=== PATIENT | male | born 1965 | race Caucasian/White ===

== ENCOUNTER → 2016-10-25 | Outpatient (CLI) | payer BC ==
[~2016-10-25] MED LIST: AUGMENTIN250 MG PO; BACTRIM DS1 TAB PO; CEFAZOLIN 2 GM IV; CEFAZOLIN2 GM/50 M1 IV; DOXYCYCLINE100 MG PO; FLORASTOR250 MG PO; KEFLEX500 MG; LOVENOX 3030 MG/0.3 SUB-Q; LOVENOX 4040 MG/0.4 SUB-Q; MIRALAX17 GM PO; NEURONTIN400 MG PO; NORCO 5-325 TA1 EACH PO; NORVASC10 MG PO; OXYCONTIN EXTEN10 MG PO; OXYGEN M-15 INH; PERCOCET 5-3251 EACH PO; TYLENOL325 MG PO; VALIUM5 MG PO; VIBRAMYCIN100 MG PO; ZOLOFT50 MG PO
== END | disposition disaster alternative care site (69) ==
LOC: GRAD 10:22
DX: S82.301D Unspecified fracture of lower end of right tibia, subsequent encounter for closed fracture with routine healing (principal); S82.831D Other fracture of upper and lower end of right fibula, subsequent encounter for closed fracture with routine healing; X58.XXXD Exposure to other specified factors, subsequent encounter

== ENCOUNTER → 2016-10-25 | Outpatient (CLI) | payer BC | END | disposition disaster alternative care site (69) | LOC: GRAD 12:00 | DX: M25.561 Pain in right knee (principal); M79.674 Pain in right toe(s); M79.89 Other specified soft tissue disorders ==

== ENCOUNTER 2016-10-28 05:52 | Inpatient (IN) | payer BC ==
[~2016-10-28] VITALS: Ht 162.6 cm; Wt 96.0 kg
--- NOTE | ~2016-10-28 | ENPV ---
Vascular Lower Extremities DVT Study Procedure Demographics Patient Name BRYAN MILLARD Date of Study 10/28/2016 Patient Number [id number] Gender Male Date of 1965 Age 50 Visit Number [id number] Height Accession Number [id number] Weight Room Number G3203 BSA BMI Referring Irene Miranda MD Interpreting Elias Bond MD Physician Physician Physician Ordering Physician Supervisor [facility] Provider Heather Brian [facility] Conclusions Summary Negative for DVT Procedure Type of Study: Veins:Lower Extremities DVT Study, Lower Extremity Right. Appropriate Use Criteria:9 Patient Status:Routine. Study Location:ER. Technical Quality:Good visualization. Velocities are measured in cm/s ; Diameters are measured in cm Right Lower Extremities DVT Study Measurements Right 2D and Doppler Measurements + + + + +------+------+ + !Location !Visualized!Compressibility!Thrombosis!Signal!Reflux!Reflux ! ! ! ! ! ! ! !(sec) ! + + + + +------+------+ + !GSV Thigh !Yes !Yes !None !Phasic!No ! ! + + + + +------+------+ + !Common !Yes !Yes !None !Phasic!No ! ! !Femoral ! ! ! ! ! ! ! + + + + +------+------+ + !Prox !Yes !Yes !None !Phasic!No ! ! !Femoral ! ! ! ! ! ! ! + + + + +------+------+ + !Mid Femoral!Yes !Yes !None !Phasic!No ! ! + + + + +------+------+ + !Dist !Yes !Yes !None !Phasic!No ! ! !Femoral ! ! ! ! ! ! ! + + + + +------+------+ + !Popliteal !Yes !Yes !None !Phasic!No ! ! + + + + +------+------+ + !Gastroc !Yes !Yes !None !Phasic!No ! ! + + + + +------+------+ + !PTV !Yes !Yes !None !Phasic!No ! ! + + + + +------+------+ + !Peroneal !Yes !Yes !None !Phasic!No ! ! + + + + +------+------+ + Left Lower Extremities DVT Study Measurements Left 2D and Doppler Measurements + + + + +------+------+ + !Location !Visualized!Compressibility!Thrombosis!Signal!Reflux!Reflux ! ! ! ! ! ! ! !(sec) ! + + + + +------+------+ + !Common !Yes !Yes !None ! ! ! ! !Femoral ! ! ! ! ! ! ! + + + + +------+------+ + Signature dtt: HARMAN BAKER dtd: 10/28/16 0631 Physician Self Edit
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
[~2016-10-28 05:52] MED LIST changes: -AUGMENTIN250 MG PO; -BACTRIM DS1 TAB PO; -CEFAZOLIN2 GM/50 M1 IV; -DOXYCYCLINE100 MG PO; -LOVENOX 3030 MG/0.3 SUB-Q; -TYLENOL325 MG PO
[2016-10-28 06:39] LABS: BASOPHIL % 0.2 %; EOSINOPHIL # 0.1 K/uL (0.0-0.5); EOSINOPHIL % 0.5 %; HEMATOCRIT 44.5 % (37.0-53.0); HEMOGLOBIN 15.5 g/dL (12.0-17.0); IMMATURE GRANULOCYTE % 0.3 %; LYMPHOCYTE # 1.9 K/uL (0.8-4.0); LYMPHOCYTE % 17.2 %; MCHC 34.8 gm/dL (32.0-36.5); MONOCYTE # 1.1 K/uL (0.0-1.0); MONOCYTE % 9.5 %; MPV 11.2 fl (9.4-12.4); NEUTROPHIL # (ANC) 8.1 K/uL (1.4-9.0); NEUTROPHIL % 72.3 %; NRBC % 0 /100WBC (0-0.00); RDW-CV 11.9 % (11.9-14.6); WBC 11.2 K/uL (4.0-11.0)
[2016-10-28 06:41] LABS: PLATELET COUNT 177 K/uL (150-450)
[2016-10-28 06:55] LABS: CHLORIDE 103 mMol/L (96-110); CO2 24 mMol/L (22-32); SODIUM 137 mMol/L (135-145)
[2016-10-28 06:56] LABS: ALBUMIN 3.6 gm/dL (3.5-5.0); ALK PHOS 83 IU/L (33-138); ALT 31 IU/L (12-78); BLOOD UREA NITROGEN 19 mg/dL (6-24); CALCIUM 8.5 mg/dL (8.5-10.5); ESTIMATED GFR (MDRD EQUATION) > 60; TOTAL PROTEIN 8.5 g/dL (6.0-8.4)
[2016-10-28 06:59] LABS: AST 24 IU/L (10-40); TOTAL BILIRUBIN 0.9 mg/dL (0.0-1.5)
[2016-10-28] MEDS ORDERED: TYLENOL325 MG PO (09:29)
--- NOTE | 2016-10-28 12:06 | NUR ---
Introduced self and care management services to patient and at bedside. Lives in [place]. Too soon to know what care needs will be but a urgent care will be following along to assist with dc planning for cellulitis RLE. Has been being followed as an outpt by [facility].
--- NOTE | 2016-10-28 17:34 | NUR ---
Significant Event:PT ADMITTED TODAY AT 0915 WITH RIGHT ANKLE CELLULITIS. HAD MRI OF RIGHT LEG TO R/O OSTEOMYELITIS. TEMP 99.0 ON ADMISSION. CHILLED AND WARM BLANKETS APPLIED AND THEN TEMP SPIKED TO 101.5AT 1445 DR. FELIZ NOTIFIED AND TYLENOL PO GIVEN. TEMP 99.4 AT 1530. C/O HEADACHE AND FEELING MISERABLE. IN ROOM. RIGHT ANKLE HAS REDDENED AREA MARKED AND 2+ EDEMA. HAS WOUND VAC ON RIGHT INNER ANKLE. WOUND CULTURES TAKEN YESTERDAY OUTPATIENT. HX HYPERTENSION. NO WEIGHT BEARING ON RIGHT FOOT. Follow up:
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
--- NOTE | 2016-10-29 04:13 | NUR ---
Significant Event: PATIENT IS ALERT AND ORIENTATED X4. BEDREST NON WEIGHT BEARING RIGHT LEG. WOUND VAC TO LOWER R LEG. REDNESS AREA OUTLINED ON R LEG. VS WNL. IV TO LEFT HAND. HE IS COMPLAINING OF HEADACHE IN FRONTAL AREA. TYLENOL GIVEN AT 0300. IS IN ROOM WITH HIM. Follow up:
--- NOTE | 2016-10-29 17:00 | NUR ---
Significant Event:PT. A/O AND UP TO BR AND SHOWER WITH . NO WEIGHT BEARING ON RIGHT FOOT. HAD 101.0 TEMP AT 1500 AND TYLENOL GIVEN. ANTIBIOTICS NARROWED DOWN TO JUST VANCO NOW AND CULTURES PENDING FOR TOMORROW. WOUND VAC ON RIGHT INNER ANKLE AND CHANGED M-W-F. NEEDS 2L PER NC AT NIGHT WHEN SLEEPING. EATING ONLY 10% OF MEALS BUT DENIES NAUSEA. IV LEFT WRIST. C/O HEADACHE AND DRINKING [place]W. Follow up:
[2016-10-30 03:30] LABS: HEMATOCRIT 44.1 % (37.0-53.0); HEMOGLOBIN 15.6 g/dL (12.0-17.0); MCH 31.2 pg (27.0-34.0); MCHC 35.4 gm/dL (32.0-36.5); MCV 88.2 fl (83.0-98.0); MPV 10.5 fl (9.4-12.4); PLATELET COUNT 200 K/uL (150-450); RDW-CV 11.9 % (11.9-14.6); WBC 6.6 K/uL (4.0-11.0)
[2016-10-30 03:57] LABS: BLOOD UREA NITROGEN 13 mg/dL (6-24); CALCIUM 8.6 mg/dL (8.5-10.5); CHLORIDE 104 mMol/L (96-110); CO2 25 mMol/L (22-32); ESTIMATED GFR (MDRD EQUATION) > 60; SODIUM 140 mMol/L (135-145)
--- NOTE | 2016-10-30 04:25 | NUR ---
Significant Event: ALERT AND ORIENTED X 4. BEDREST REPOSITIONS SELF. VS WNL ON RA. NEW IV TO R HAND TO BE KEPT AT TKO FOR VANCOMYCIN. WOUND VAC TO R LOWER LEG RUNNING AND INTACT REDNESS OUTLINED NO CHANGE. AFEBRILE THIS SHIFT. GOOD INTAKE FOR DINNER 100% OF SUB EATEN. NO COMPLAINTS OF PAIN OR DISCOMFORT THIS SHIFT. Follow up:
[2016-10-30 05:18] LABS: ABSOLUTE NEUTROPHIL CT (ANC) 4.5 K/uL (1.4-9.0); BANDED NEUTROPHIL # 0.1 K/uL (0.0-0.1); BANDED NEUTROPHILS % 2 %; LYMPHOCYTE # 1.6 K/uL (0.8-4.0); LYMPHOCYTE % 24 %; MONOCYTE # 0.5 K/uL (0.0-1.0); SEGMENTED NEUTROPHIL # 4.4 K/uL (1.4-9.0); SEGMENTED NEUTROPHIL % 66 %
[2016-10-30] MEDS ORDERED: BACTRIM DS1 TAB PO (14:12)
--- NOTE | 2016-10-30 15:46 | NUR ---
Discharge summary: Patient is alert and oriented. VSS. ON room air. IV to right forearm was removed without difficulty. Patient changed wound vac to home vac. Dressing to ankle was removed by Doctor. Instructions given to call and make appointments with infection disease and Dr Davis. Education was given to patient and on preventing dvt's, cellulitis, and the new medications he went home with. Prescripitions were given to take to pharmacy. Patient and verbalized understanding. Pt was wheeled per w/c to main [place] doors.
[2016-11-08] MEDS ORDERED: DOXYCYCLINE100 MG PO (11:14)
[2017-01-04] MEDS ORDERED: AUGMENTIN250 MG PO (13:26)
== END 2016-10-30 14:55 | disposition disaster alternative care site (69) | DRG 560 ==
LOC: GMED 05:52 → GMSU 08:24
PROVIDERS: Emergency Medicine; Nurse Practitioner Family; ADMIT Internal Medicine
DX: T84.59XA Infection and inflammatory reaction due to other internal joint prosthesis, initial encounter (principal); J96.11 Chronic respiratory failure with hypoxia; L03.115 Cellulitis of right lower limb; B95.61 Methicillin susceptible Staphylococcus aureus infection as the cause of diseases classified elsewhere; I10 Essential (primary) hypertension; S82.302H Unspecified fracture of lower end of left tibia, subsequent encounter for open fracture type I or II with delayed healing; V89.2XXD Person injured in unspecified motor-vehicle accident, traffic, subsequent encounter
CPT/HCPCS: A9577; J1335; J1650; J2270; J3370; J7030; J7040; J7050

== ENCOUNTER → 2016-11-08 | Outpatient (CLI) | payer BC ==
[~2016-11-08] MED LIST changes: +AUGMENTIN250 MG PO; +BACTRIM DS1 TAB PO; +CEFAZOLIN2 GM/50 M1 IV; +DOXYCYCLINE100 MG PO; +LOVENOX 3030 MG/0.3 SUB-Q; +TYLENOL325 MG PO
[2016-11-08 11:00] LABS: BASOPHIL % 0.4 %; EOSINOPHIL # 0.2 K/uL (0.0-0.5); EOSINOPHIL % 2.2 %; HEMATOCRIT 45.2 % (37.0-53.0); HEMOGLOBIN 15.9 g/dL (12.0-17.0); IMMATURE GRANULOCYTE % 0.6 %; LYMPHOCYTE # 1.8 K/uL (0.8-4.0); LYMPHOCYTE % 26.2 %; MCHC 35.2 gm/dL (32.0-36.5); MCV 88.1 fl (83.0-98.0); MONOCYTE # 0.6 K/uL (0.0-1.0); MONOCYTE % 8.5 %; MPV 10.1 fl (9.4-12.4); NEUTROPHIL # (ANC) 4.2 K/uL (1.4-9.0); NEUTROPHIL % 62.1 %; NRBC % 0 /100WBC (0-0.00); PLATELET COUNT 253 K/uL (150-450); RBC 5.13 M/uL (4.00-6.00); RDW-CV 11.8 % (11.9-14.6); WBC 6.8 K/uL (4.0-11.0)
== END | disposition disaster alternative care site (69) ==
LOC: GLAB 10:30
PROVIDERS: Orthopaedic Surgery
DX: B99.9 Unspecified infectious disease (principal)

== ENCOUNTER → 2016-11-15 | Outpatient (CLI) | payer BC ==
[2016-11-15 12:40] LABS: BASOPHIL # 0.1 K/uL (0.0-0.2); BASOPHIL % 0.6 %; EOSINOPHIL # 0.2 K/uL (0.0-0.5); EOSINOPHIL % 1.9 %; HEMATOCRIT 46.5 % (37.0-53.0); IMMATURE GRANULOCYTE % 0.3 %; LYMPHOCYTE # 2.3 K/uL (0.8-4.0); LYMPHOCYTE % 29.6 %; MCH 29.9 pg (27.0-34.0); MCHC 34.4 gm/dL (32.0-36.5); MCV 86.9 fl (83.0-98.0); MONOCYTE # 0.7 K/uL (0.0-1.0); MONOCYTE % 9.4 %; MPV 10.6 fl (9.4-12.4); NEUTROPHIL # (ANC) 4.5 K/uL (1.4-9.0); NEUTROPHIL % 58.2 %; NRBC % 0 /100WBC (0-0.00); PLATELET COUNT 238 K/uL (150-450); RBC 5.35 M/uL (4.00-6.00); RDW-CV 11.9 % (11.9-14.6); WBC 7.7 K/uL (4.0-11.0)
[2016-11-15 12:52] LABS: ESTIMATED GFR (MDRD EQUATION) > 60
== END | disposition disaster alternative care site (69) ==
LOC: GLAB 12:00
PROVIDERS: Orthopaedic Surgery
DX: T81.4XXA Infection following a procedure, initial encounter (principal); S91.001A Unspecified open wound, right ankle, initial encounter; M86.9 Osteomyelitis, unspecified

== ENCOUNTER → 2016-11-23 | Outpatient (CLI) | payer BC ==
--- NOTE | ~2016-11-23 | PUL ---
PATIENT'S NAME: BRYAN MILLARD [facility] AGE: 50 Y [address] ROOM: [place] [address] LOCATION: [facility] ADMIT DATE: 11/23/2016 Pulmonary DISCHARGE DATE: FAMILY PHYSICIAN: PERFECTO GROSS MD ATTENDING PHYSICIAN: Yareli [place] NAME OF PROCEDURE: Sleep Study PROCEDURE DATE: 11/23/16 TECH: MAGDIEL Malcolm TEST #: SD# [id number] TECHNICAL PARAMETERS: The patient was studied using International 10/20 measuring system. While the patient was studied, there was continuous monitoring of EEG (8 leads), EOG (2 leads), EKG (3 leads), submental EMG (3 leads), tibial (4 leads), respiratory inductive plethysmography (RIP) for thoracic and abdominal effort, oral and nasal airflow with a thermocouple and pressure transducer, and oximetry. The paint technician also performed visual and auditory observations noting things like body position, patient's status, breath sounds, artifact, snoring level and patient comments. Continuous sound was monitored using a 2-way speaker system and video monitoring was performed using an infrared camera. Review of the entire study was performed epoch by epoch utilizing a single epoch and multiple epoch capability sleep system. MEDICAL HISTORY: The patient is a 50-year-old gentleman with daytime sleepiness and snoring. SLEEP STAGE SUMMARY: The patient was studied for 451 minutes of which he slept 397 minutes. He fell asleep in 3 minutes and slept for 88% of the night. Sleep architecture revealed a decline in slow wave sleep. RESPIRATORY SUMMARY: Oxygen saturations ranged from 81-91% and were below 88% for 54 minutes. There were 9 apneas and 21 hypopneas for an apnea/hypopnea index normal at 4.5 events per hour. EKG SUMMARY: No significant dysrhythmias were noted. Average heart rate 72 beats per minute. LIMB MOVEMENT SUMMARY: No significant periodic limb movements were noted. SUMMARY: No evidence of significant obstructive sleep apnea. The patient however has mild non apneic hypoxemia. PATIENT'S NAME: BRYAN MILLARD [facility] AGE: 50 Y [address] ROOM: [place] [address] LOCATION: [facility] ADMIT DATE: 11/23/2016 Pulmonary DISCHARGE DATE: FAMILY PHYSICIAN: PERFECTO GROSS MD ATTENDING PHYSICIAN: Yareli [place] PLAN: Patient will receive results from the ordering provider. MD SHUBHAM [place]/ /[id number] dtt: 11/28/16 1743 , Malachi Jarquin. dtd: 11/26/16 1046
== END | disposition disaster alternative care site (69) ==
LOC: GSLP 09-14 21:00
DX: G47.30 Sleep apnea, unspecified (principal)

== ENCOUNTER → 2016-11-23 | Outpatient (CLI) | payer BC ==
[2016-11-23 10:56] LABS: BASOPHIL % 0.5 %; EOSINOPHIL # 0.2 K/uL (0.0-0.5); EOSINOPHIL % 3.2 %; HEMATOCRIT 44.2 % (37.0-53.0); HEMOGLOBIN 15.6 g/dL (12.0-17.0); IMMATURE GRANULOCYTE % 0.2 %; LYMPHOCYTE % 29.7 %; MCH 30.6 pg (27.0-34.0); MCHC 35.3 gm/dL (32.0-36.5); MCV 86.7 fl (83.0-98.0); MONOCYTE # 0.7 K/uL (0.0-1.0); MONOCYTE % 10.9 %; MPV 10.4 fl (9.4-12.4); NEUTROPHIL # (ANC) 3.7 K/uL (1.4-9.0); NEUTROPHIL % 55.5 %; NRBC % 0 /100WBC (0-0.00); PLATELET COUNT 196 K/uL (150-450); RDW-CV 11.9 % (11.9-14.6); WBC 6.6 K/uL (4.0-11.0)
[2016-11-23 16:12] LABS: ALBUMIN 3.6 gm/dL (3.5-5.0); ALK PHOS 107 IU/L (33-138); ALT 35 IU/L (12-78); AST 33 IU/L (10-40); BLOOD UREA NITROGEN 13 mg/dL (6-24); CALCIUM 8.7 mg/dL (8.5-10.5); CHLORIDE 104 mMol/L (96-110); CO2 27 mMol/L (22-32); ESTIMATED GFR (MDRD EQUATION) > 60; SODIUM 138 mMol/L (135-145); TOTAL PROTEIN 8.5 g/dL (6.0-8.4)
[2016-11-23 16:13] LABS: TOTAL BILIRUBIN 0.5 mg/dL (0.0-1.5)
== END | disposition disaster alternative care site (69) ==
LOC: GLAB 10:00
PROVIDERS: Orthopaedic Surgery; Student in an Organized Health Care Education/Training Program
DX: B99.9 Unspecified infectious disease (principal); S82.301D Unspecified fracture of lower end of right tibia, subsequent encounter for closed fracture with routine healing; S82.831D Other fracture of upper and lower end of right fibula, subsequent encounter for closed fracture with routine healing; X58.XXXD Exposure to other specified factors, subsequent encounter

== ENCOUNTER 2016-11-24 08:47 | Inpatient (IN) | payer BC ==
[~2016-11-24] VITALS: Ht 162.6 cm; Wt 91.3 kg
--- NOTE | ~2016-11-24 | CON ---
PATIENT'S NAME: PORTER CASTRO [facility] AGE: 50 Y [address] ROOM: [place] [address] LOCATION: [facility] ADMIT DATE: 11/24/2016 Consultation DISCHARGE DATE: FAMILY PHYSICIAN: PERFECTO GROSS MD ATTENDING PHYSICIAN: José Antonio Davis DATE OF CONSULTATION: 11/25/2016 REFERRING PHYSICIAN: José Antonio Davis MD REASON FOR CONSULTATION: Right ankle osteomyelitis. HISTORY OF PRESENT ILLNESS: I am asked by Dr. José Antonio Davis to see Porter Castro for further evaluation and recommendations regarding his right ankle infection. He has a long history of infection going back several months, and my group has followed him for most of that time. In brief, he sustained a right ankle fracture about 4 months ago and underwent open reduction and internal fixation. He had an open fracture at that time. He eventually developed a pin-tract infection with Staphylococcus coagulase negative, and ultimately developed a wound and infection at the site of the internal fixation. He was on a fairly prolonged course of oral antibiotics, initially Bactrim, then more recently doxycycline. However, he has failed to heal the wound and resolve the infection. Therefore, he was admitted yesterday and underwent debridement of medial and lateral wounds, and removal of the hardware. Prior cultures have grown Staphylococcus aureus, as well as Staphylococcus epidermidis, sensitive to oxacillin. PAST MEDICAL HISTORY: Hypertension. CURRENT MEDICATIONS: See the MAR for complete listing of medications. He was on doxycycline prior to admission, and currently, he is on cefazolin. SOCIAL HISTORY: No tobacco or alcohol abuse history to my knowledge. FAMILY HISTORY: Unremarkable and noncontributory to current illness. REVIEW OF SYSTEMS: A complete review of systems was carried out, and was remarkable only as noted. Please refer to the admission history and physical for complete PATIENT'S NAME: PORTER CASTRO [facility] AGE: 50 Y [address] ROOM: [address] [address] LOCATION: [facility] ADMIT DATE: 11/24/2016 Consultation DISCHARGE DATE: FAMILY PHYSICIAN: PERFECTO GROSS MD ATTENDING PHYSICIAN: José Antonio Davis details. OBJECTIVE: GENERAL: He appeared comfortable and is in no distress. VITAL SIGNS: Temperature is 37 degrees, blood pressure 113/71, pulse 76. HEENT - Posterior pharynx is clear, no adenopathy or thyromegaly. Cranial nerves intact. NECK: Supple. CHEST - Clear to auscultation. CARDIOVASCULAR - Regular rate and rhythm without S3, S4, and murmur. ABDOMEN - Soft, nontender, without hepatosplenomegaly or masses. EXTREMITIES - The right ankle and foot had an external fixator in place. There was a wound VAC present, as well. The foot and ankle were dressed and wrapped with an Freddie bandage. NEUROLOGIC - Strength and sensation grossly intact. PSYCHIATRIC - Behavior and affect are appropriate. LABORATORY DATA: Creatinine 1.0, liver function tests are normal. CRP is 2.17, white count 6.6, sedimentation rate 26. 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 Prior cultures have shown Staphylococcus aureus and Staphylococcus epidermidis, both sensitive to oxacillin. PLAN: We will continue with cefazolin 2 g every 8 hours for the next 6 weeks. He has done this at home before, and I think it would be a reasonable option, but another option for once a day administration would be ertapenem 1 g daily. He will follow up with my group in 2 weeks, and we will obtain weekly monitoring labs, as well as following his clinical progress. Thank you for this consultation. I am available to discuss the case by phone at [phone]. MD ALEJANDRA HASTINGS/modl PATIENT'S NAME: PORTER CASTRO [facility] AGE: 50 Y [address] ROOM: [address] [address] LOCATION: [facility] ADMIT DATE: 11/24/2016 Consultation DISCHARGE DATE: FAMILY PHYSICIAN: PERFECTO GROSS MD ATTENDING PHYSICIAN: José Antonio Davis /[id number] CC: MD Ki Mccormack MD d: 11/25/16 0848 t: 11/25/16 1117, CONSULTATION REPORT
--- NOTE | ~2016-11-24 | OR ---
[facility] 50 Y [address] ROOM: [address] [address] LOCATION: [facility] ADMIT DATE: 11/24/2016 OR/Procedure Report DISCHARGE DATE: FAMILY PHYSICIAN: PERFECTO GROSS MD ATTENDING PHYSICIAN: José Antonio Sparks SURGEON: José Antonio Sparks MD VEGETABLE VENDOR: DATE OF PROCEDURE: 11/24/2016 DIAGNOSIS: Right ankle pilon infected nonunion. PROCEDURE: 1. Irrigation and debridement, anterior right leg open fracture wound. 2. Irrigation and debridement, posterior tibia and fibula. 3. Removal of internal fixation from the tibia. 4. Removal of internal fixation from the fibula. 5. Deep cultures. 6. Application of tobramycin and vancomycin impregnated ceramic beads. 7. Placement of a deep Hemovac. 8. Placement of an external fixator. 9. Posterior splint. 10. Anterior wound VAC. ANESTHESIA: General. INDICATION: Mr. Castro is greater than 3 months status post open pilon. The anterior open wound has never totally healed. Cultures have been positive since initial debridements. Latest culture has grown Staph aureus sensitive to all except penicillin and erythromycin. There is also a Peptostreptococcus and Diphtheroids, has been on oral antibiotics. Despite the oral antibiotics, the swelling and erythema has become worse. The odor is worse. Clearly, the infection is not controlled and most likely delaying the healing. At this time, repeat irrigation and debridement, removal of fixation, and eventually refixation is indicated. Risks, benefits, and alternatives have been discussed. DESCRIPTION OF PROCEDURE: Mr. Castro was taken to the operating room. No preoperative antibiotics. General anesthetic via endotracheal tube. Turned under rolls in a prone position. Tourniquet high about the right thigh. Right leg was prepared with Betadine scrubbing followed by Betadine painting. With the knee flexed, the anterior wound was extended proximally and distally. There was some necrotic tissue distally went down into the nonunited fractures. This was all carefully and meticulously debrided, debrided back to healthy tissue. Cultures were taken deep in the wound. No purulence was seen. Cultures were sent for aerobic, anaerobic, fungal, and TB cultures. [facility]GE: 50 Y [address] ROOM: [id number] [place], [place] [address] LOCATION: [facility] ADMIT DATE: 11/24/2016 OR/Procedure Report DISCHARGE DATE: FAMILY PHYSICIAN: PERFECTO GROSS MD ATTENDING PHYSICIAN: José Antonio Sparks Irrigated with 6 L with the pulse lavage. The tissue did not appear to be ready for new fixation, opted to place an external fixator. Two proximal tibial pins were placed and a transfixation pin through the calcaneus using the large fragment AO Synthes fixator system. Triangular bars were placed with good stabilization of the ankle. The leg was then extended. The posterior wound was opened. Through dense scar tissue, dissection between the gastrocsoleus, extensor hallucis longus, and the peroneal muscles, dissection down to the fibula and down to the posterior tibia. There was no gross purulence, but there was necrotic and very edematous tissue. This was all carefully and meticulously debrided. The fibula plate was removed. The tibial plate was removed, and the 3 periarticular screws fixating the articular surface were all carefully removed with washers. All metal was removed and documented with x-rays. The articular surface was stable. All the screw holes were over drilled with a 3.5 drill bit. All bone surfaces were carefully and meticulously debrided with a curette. Debridement inside the canal and some of the bone was sent for histology. No gross obvious osteomyelitis and again no purulence seen. Irrigated with another 6 L with the pulse lavage. Stimulan ceramic beads with 1 g of vancomycin and 1.2 g of tobramycin were prepared and packed within the canal and about the nonunited fragments. Hemovac was placed deep in the wound. Fascia was closed with 0 Vicryl simple sutures. Subcutaneous tissues were closed with 2-0 Vicryl subcuticular, and skin was closed with cristal. There was no pressure on the wound. The leg was then flexed. A silver impregnated wound VAC was placed in the anterior wound. There was a good seal with 125 mm of continuous pressure. A posterior foot splint was applied. The procedure was done without complication. ESTIMATED BLOOD LOSS: From the procedure was minimal. SPECIMENS: Anterior cultures for aerobic, anaerobic, fungal, and TB cultures. Posterior cultures for aerobic, anaerobic, fungal, and TB cultures, and posterior bone for histology. DISCHARGE: To the recovery room in stable condition. He was given 3 g of Kefzol after cultures were taken. We will plan for a PICC line and IV antibiotics. Guided by ID consultation. When the anterior wound is completely stabilized and healed, we will plan to a supplement posterior fixation and will most likely also require bone graft and biologics for healing. JOSÉ ANTONIO SPARKS MD PATIENT'S NAME: BRYAN CASTRO [facility] AGE: 50 Y [address] ROOM: [address] [address] LOCATION: [facility] ADMIT DATE: 11/24/2016 OR/Procedure Report DISCHARGE DATE: FAMILY PHYSICIAN: PERFECTO GROSS MD ATTENDING PHYSICIAN: José Antonio Sparks DPM/modl /[id number] d: 11/25/16 0038 t: 11/26/16 1212, OPERATIVE SUMMARY
--- NOTE | ~2016-11-24 | DS ---
PATIENT'S NAME: BRYAN CASTRO [facility] AGE: 50 Y [address] ROOM: [id number] [place], [place] [address] LOCATION: [facility] ADMIT DATE: 11/24/2016 Discharge Summary DISCHARGE DATE: 11/26/2016 FAMILY PHYSICIAN: Fam Mosley MD ATTENDING PHYSICIAN: José Antonio Davis Mr. Castro greater than 3 months status post open pilon fracture, has been culture positive since beginning, had been on suppressive antibiotics. The infection broke through, has had increasing erythema and swelling, indicated to the operating room, redebridement of the anterior open fracture wound and also the posterior surgical wound. All fixation was removed. The wound was aggressively debrided. All screw holes were overdrilled. Vancomycin and tobramycin impregnated ceramic beads were placed. External fixator was replaced rather than going with new internal fixation. Pain was easily controlled. Neurovascularly intact. He does have the continued hyperpathic burning pain from the original crush injury, controlled with Neurontin 400 mg 3 times a day. VAC change was done on the day of discharge, wounds reported to be intact and looking good. Hemovac drain was discontinued. He has been afebrile. ID Service is managing his antibiotics, Kefzol 2 grams IV 3 times a day. Cultures grew out Staph. Discharged to home. Regular diet. Activity, non-weight bear on the right. I have instructed him on exercises to do leg lifts and range of motion of his toes every 15 minutes while awake. We will keep the leg elevated as possible. Wound VAC changes have been ordered every Tuesday, Tuesday, and Tuesday. ID Service will continue to manage his IV antibiotics. He will need his antibiotics till the fracture is healed. Will follow up with Dr. Davis on December 20, 2016. If inflammatory markers have normalized and the anterior open fracture wound has healed, may be good timing for removal of the external fixator, replacement of the internal fixator, and augmenting with either autogenous bone graft or biologics or both. The patient understands the plan of treatment. DISCHARGE MEDICATIONS: 1. Lovenox 40 mg each day for another 3 weeks to minimize chance of DVT. 2. His antibiotic includes Kefzol 2 grams IV q.8 hours. 3. Neurontin 400 mg 3 times a day. 4. Either [place] or Tylenol for discomfort as needed. Other medicines include; 1. Norvasc. 2. Florastor. 3. Oxygen. PATIENT'S NAME: BRYAN CASTRO [facility] AGE: 50 Y [address] ROOM: [address] [address] LOCATION: [facility] ADMIT DATE: 11/24/2016 Discharge Summary DISCHARGE DATE: 11/26/2016 FAMILY PHYSICIAN: Fam Mosley MD ATTENDING PHYSICIAN: José Antonio Davis MD DPM/amira /[id number] d: 11/26/162151 t: 12/04/16 1417, DISCHARGE SUMMARY
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
[~2016-11-24 08:47] MED LIST changes: -AUGMENTIN250 MG PO; -CEFAZOLIN2 GM/50 M1 IV; -LOVENOX 3030 MG/0.3 SUB-Q
[2016-11-26] MEDS ORDERED: CEFAZOLIN2 GM/50 M1 IV (12:36)
[2016-11-26] MEDS ORDERED: LOVENOX 3030 MG/0.3 SUB-Q (12:43)
[2017-01-04] MEDS ORDERED: AUGMENTIN250 MG PO (13:26)
== END 2016-11-26 13:48 | disposition disaster alternative care site (69) | DRG 493 ==
LOC: GSDC 08:47 → GPOC 18:00 → G3N 20:33
PROVIDERS: ADMIT Orthopaedic Surgery
PROC: 0SPF04Z Removal of Internal Fixation Device from Right Ankle Joint, Open Approach (ICD-10-PCS; principal; 2016-11-24)
PROC: 0JDQ0ZZ Extraction of Right Foot Subcutaneous Tissue and Fascia, Open Approach (ICD-10-PCS; 2016-11-24)
DX: S82.141K Displaced bicondylar fracture of right tibia, subsequent encounter for closed fracture with nonunion (principal); M86.8X7 Other osteomyelitis, ankle and foot; I10 Essential (primary) hypertension; Z79.2 Long term (current) use of antibiotics; L29.9 Pruritus, unspecified; V49.9XXD Car occupant (driver) (passenger) injured in unspecified traffic accident, subsequent encounter; Z86.19 Personal history of other infectious and parasitic diseases
CPT/HCPCS: C1713; C1751; J0131; J0690; J1170; J1650; J2250; J3010; J3370; J3480; J7050; J7120

== ENCOUNTER → 2016-12-20 | Outpatient (CLI) | payer BC ==
[~2016-12-20] MED LIST changes: +AUGMENTIN250 MG PO; +CEFAZOLIN2 GM/50 M1 IV; +LOVENOX 3030 MG/0.3 SUB-Q
== END | disposition disaster alternative care site (69) ==
LOC: GRAD 09:36
DX: S82.871D Displaced pilon fracture of right tibia, subsequent encounter for closed fracture with routine healing (principal); S82.831D Other fracture of upper and lower end of right fibula, subsequent encounter for closed fracture with routine healing; X58.XXXD Exposure to other specified factors, subsequent encounter

== ENCOUNTER → 2017-01-31 | Outpatient (CLI) | payer BC ==
[2017-01-31 11:32] LABS: BASOPHIL % 0.7 %; EOSINOPHIL # 0.1 K/uL (0.0-0.5); EOSINOPHIL % 3.3 %; HEMOGLOBIN 14.7 g/dL (12.0-17.0); IMMATURE GRANULOCYTE % 0.2 %; LYMPHOCYTE # 1.3 K/uL (0.8-4.0); LYMPHOCYTE % 31.2 %; MCH 30.2 pg (27.0-34.0); MCV 86.4 fl (83.0-98.0); MONOCYTE # 0.4 K/uL (0.0-1.0); MONOCYTE % 9.7 %; MPV 11.1 fl (9.4-12.4); NEUTROPHIL # (ANC) 2.3 K/uL (1.4-9.0); NEUTROPHIL % 54.9 %; NRBC % 0 /100WBC (0-0.00); PLATELET COUNT 161 K/uL (150-450); RBC 4.86 M/uL (4.00-6.00); RDW-CV 13.3 % (11.9-14.6); WBC 4.2 K/uL (4.0-11.0)
== END | disposition disaster alternative care site (69) ==
LOC: GRAD 11:03
PROVIDERS: Orthopaedic Surgery
DX: M84.461A Pathological fracture, right tibia, initial encounter for fracture (principal)

== ENCOUNTER → 2017-02-15 | Outpatient (CLI) | payer BC | END | disposition disaster alternative care site (69) | LOC: GLAB 08:31 | DX: L08.9 Local infection of the skin and subcutaneous tissue, unspecified (principal) ==

== ENCOUNTER → 2017-03-14 | Outpatient (CLI) | payer BC | END | disposition disaster alternative care site (69) | LOC: GRAD 13:56 | DX: B99.9 Unspecified infectious disease (principal); S82.301D Unspecified fracture of lower end of right tibia, subsequent encounter for closed fracture with routine healing; S82.831D Other fracture of upper and lower end of right fibula, subsequent encounter for closed fracture with routine healing; X58.XXXD Exposure to other specified factors, subsequent encounter ==

== ENCOUNTER → 2017-04-25 | Outpatient (CLI) | payer BC ==
[~2017-04-25] MED LIST changes: +OXACILLIN IV
[2017-04-25 14:39] LABS: BASOPHIL % 0.7 %; EOSINOPHIL # 0.2 K/uL (0.0-0.5); EOSINOPHIL % 3.5 %; HEMATOCRIT 40.2 % (37.0-53.0); HEMOGLOBIN 13.7 g/dL (12.0-17.0); IMMATURE GRANULOCYTE % 0.4 %; LYMPHOCYTE # 1.8 K/uL (0.8-4.0); LYMPHOCYTE % 32.8 %; MCH 29.9 pg (27.0-34.0); MCHC 34.1 gm/dL (32.0-36.5); MCV 87.8 fl (83.0-98.0); MONOCYTE # 0.5 K/uL (0.0-1.0); MONOCYTE % 8.4 %; MPV 9.7 fl (9.4-12.4); NEUTROPHIL % 54.2 %; NRBC % 0 /100WBC (0-0.00); RBC 4.58 M/uL (4.00-6.00); RDW-CV 12.6 % (11.9-14.6); WBC 5.5 K/uL (4.0-11.0)
[2017-04-25 14:40] LABS: PLATELET COUNT 301 K/uL (150-450)
== END | disposition disaster alternative care site (69) ==
LOC: GLAB 13:30
PROVIDERS: Orthopaedic Surgery
DX: B99.9 Unspecified infectious disease (principal)